=== PATIENT | female | born 1940 | race Caucasian/White ===

== ENCOUNTER 2017-01-07 23:50 | Emergency (ER) | payer MEDICARE ==
--- NOTE | 2017-01-08 00:56 | ED ---
Hemant Mckeon Michael, scribed for Burak Richter MD on 01/08/17 at 0047 . Hypertension - HPI Summary HPI Summary: 76 y/o female comes to the ED presenting with HTN that started today at 1700. The pt reports that she took her blood pressure at home, but she did not report what it was. Currently at the ED, her blood pressure is 216/83. Nothing aggravated or alleviated her blood pressure. The pt denies all other symptoms. She take bp medication and her last visit to her PCP was one month ago. The PMHx is significant for HTN. - History of Current Complaint Chief Complaint: EDHypertension Stated Complaint: HIGH BLOOD PRESSURE Time Seen by Provider: 01/08/17 00:25 Hx Obtained From: Patient, Medical Records Onset/Duration: Started Hours Ago, Still Present Timing: Constant Aggravating Factor(s): Nothing Alleviating Factor(s): Nothing Associated Signs & Symptoms: Other: - HTN. - Allergies/Home Medications Allergies/Adverse Reactions: Allergies Allergy/AdvReac Type Severity Reaction Status Date / Time Pseudoephedrine Allergy Hives Ver[facility] 01/08/17 00:09 [facility] peanut Allergy Abdominal Uncoded 01/08/17 00:10 Pain PMH/Surg Hx/FS Hx/Imm Hx Cardiovascular History: Reports: Hx Hypertension Infectious Disease History: No Infectious Disease History: Denies: Traveled Outside the [place] in Last 30 Days - Family History Known Family History: Negative: Blood Disorder - Social History Occupation: Unemployed Lives: With Family Review of Systems Negative: Fever Positive: Other - HTN All Other Systems Reviewed And Are Negative: Yes Physical Exam Triage Information Reviewed: Yes Vital Signs On Initial Exam: Initial Vitals Temp Pulse Resp BP Pulse Ox 98.1 F 77 18 216/83 100 01/08/17 00:06 01/08/17 00:06 01/08/17 00:06 01/08/17 00:06 01/08/17 00:06 Vital Signs Reviewed: Yes Appearance: Positive: No Pain Distress, Thin Skin: Positive: Warm Head/Face: Positive: Normal Head/Face Inspection Eyes: Positive: JOSE ANTONIO ENT: Positive: Hearing grossly normal Neck: Positive: Supple Respiratory/Lung Sounds: Positive: Clear to Auscultation, Breath Sounds Present Cardiovascular: Positive: RRR Abdomen Description: Positive: Nontender, Soft Bowel Sounds: Positive: Present Musculoskeletal: Positive: Strength/ROM Intact Neurological: Positive: Alert, Oriented to Person Place, Time Psychiatric: Positive: Affect/Mood Appropriate Diagnostics - Vital Signs Vital Signs Temp Pulse Resp BP Pulse Ox 01/08/17 00:06 98.1 F 77 18 216/83 100 - Laboratory Result Diagrams: 01/08/17 01:00 01/08/17 01:00 Lab Statement: Any lab studies that have been ordered have been reviewed, and results considered in the medical decision making process. Re-Evaluation - Re-Evaluation First Eval Change: Improved Hypertension Course/Dx - Diagnoses Provider Diagnoses: Hypertension Discharge - Discharge Plan Condition: Stable Disposition: HOME Patient Education Materials: Hypertension (ED) Referrals: Non Staff,Doctor [Primary Care Provider] - Additional Instructions: You should follow up with your Primary Care Physician within the next 2-3 days. Please return to the ED if your symptoms worsen. The documentation as recorded by the Hemant weldon Michael accurately reflects the service I personally performed and the decisions made by me, Burak Richter MD.
[2017-01-08 01:25] LABS: Hematocrit 41 % (35-47); Hemoglobin 13.6 g/dl (12.0-16.0); Mean Corpuscular HGB Conc 33 g/dl (31-36); Mean Corpuscular Hemoglobin 30 pg (27-31); Mean Corpuscular Volume 92 fL (80-97); Mean Platelet Volume 9 um3 (7.4-10.4); Red Blood Count 4.47 10^6/ul (4.0-5.4); Red Cell Distribution Width 13 % (10.5-15); White Blood Count 4.6 10^3/ul (3.5-10.8)
[2017-01-08 01:36] LABS: BUN/Creatinine Ratio 14.3 (8-20); Calcium 9.7 mg/dL (8.6-10.3); EGFR African American 85.2 (>60); EGFR Non-African American 66.3 (>60); Potassium 3.7 mmol/L (3.5-5.0)
[2017-01-08 04:01] VITALS: BP 171/54
== END 2017-01-08 01:55 | disposition home or self-care (01) ==
LOC: ED 23:50
DX: I10 Essential (primary) hypertension (principal)
CPT/HCPCS: 36415; 80048; 85025; 99282

== ENCOUNTER 2019-06-05 08:41 | Emergency (ER) | payer MEDICARE ==
[2019-06-05] MEDS ORDERED: Dexamethasone TAB* 4 MG PO ONE (09:11)
[2019-06-05] MEDS ORDERED: Famotidine TAB* 20 MG PO ONE (09:11)
[2019-06-05] MEDS ORDERED: diPHENhydraMINE PO* 25 MG PO ONE (09:11)
[2019-06-05 10:04] LABS: ABS Eosinophils 0.1 10^3/ul (0-0.6); ABS Monocytes 0.3 10^3/ul (0-0.8); ABS Neutrophils 1.7 10^3/ul (1.5-7.7); Eosinophil % 4.5 %; Hematocrit 41 % (35-47); Hemoglobin 13.4 g/dL (12.0-16.0); Lymphocyte % 32.1 %; Mean Corpuscular HGB Conc 33 g/dL (31-36); Mean Corpuscular Hemoglobin 30 pg (27-31); Mean Corpuscular Volume 91 fL (80-97); Mean Platelet Volume 8.4 fL (7.4-10.4); Nucleated Red Blood Cells % 0.1; Platelet Count 179 10^3/uL (150-450); Red Blood Count 4.47 10^6 /uL (3.70-4.87); Red Cell Distribution Width 13 % (10-15); White Blood Count 3.2 10^3/uL (3.5-10.8)
[2019-06-05 10:10] LABS: Albumin 4.1 g/dL (3.2-5.2); Albumin/Globulin Ratio 1.4 (1-3); BUN/Creatinine Ratio 14.6 (8-20); Calcium 9.9 mg/dL (8.6-10.3); EGFR African American 74.6 (>60); EGFR Non-African American 61.7 (>60); Globulin 2.9 g/dL (2-4); Potassium 4.1 mmol/L (3.5-5.0); Total Bilirubin 0.6 mg/dL (0.2-1.0)
--- NOTE | 2019-06-05 10:17 | ED ---
Allergic Reaction/Systemic - HPI Summary HPI Summary: Pt. is a 78 y.o female who presents to the ER for upper and lower lip swelling and lower face swelling since this am. Pt. states she noticed the swelling when she woke up and it seems to be increasing. Pt. denies tongue swelling, difficulty swallowing, cp, sob, rash, itching. Pt. notes she has a allergy to peanuts and states she was eating nuts yesterday but is sure there were no peanuts. She also notes she was in the garden yesterday but does not recall any insect stings/bites. Past hx of HTN and hypothyroid. Pt. takes Lisinopril. - History of Current Complaint Chief Complaint: EDAllergicReaction Time Seen by Provider: 06/05/19 08:56 Hx Obtained From: Patient Pain Intensity: 0 - Allergies/Home Medications Allergies/Adverse Reactions: Allergies Allergy/AdvReac Type Severity Reaction Status Date / Time peanut Allergy Abdominal Verified 06/05/19 08:43 Pain pseudoephedrine Allergy Hives Verified 06/05/19 08:43 Home Medications: Home Medications Levothyroxine Sodium [Synthroid] 1 tab PO QAM 06/05/19 [History Confirmed ] Lisinopril 20 mg PO DAILY 06/05/19 [History Confirmed 06/05/19] Pilocarpine HCl 1 drop LEFT EYE BID 06/05/19 [History Confirmed 06/05/19] PMH/Surg Hx/FS Hx/Imm Hx Previously Healthy: Yes Cardiovascular History: Reports: Hx Hypertension Infectious Disease History: No Infectious Disease History: Denies: Traveled Outside the [place] in Last 30 Days - Family History Known Family History: Positive: Non-Contributory Negative: Blood Disorder - Social History Occupation: Retired Lives: With Family Alcohol Use: None Substance Use Type: Reports: None Smoking Status (MU): Never Smoked Tobacco Review of Systems Positive: Other - lip and lower facial swelling Cardiovascular: Negative Respiratory: Negative Negative: Shortness Of Breath Gastrointestinal: Negative Genitourinary: Negative Musculoskeletal: Negative Skin: Negative Negative: Rash Neurological: Negative All Other Systems Reviewed And Are Negative: Yes Physical Exam Triage Information Reviewed: Yes Vital Signs On Initial Exam: Initial Vitals Temp Pulse Resp BP Pulse Ox 98.7 F 62 16 231/104 99 06/05/19 08:43 06/05/19 08:43 06/05/19 08:43 08/18/19 08:43 06/05/19 08:43 Vital Signs Reviewed: Yes Appearance: Positive: Well-Appearing - Pt. sitting on bed in NAD. Very talkative. Skin: Positive: Warm, Dry Head/Face: Positive: Other - Moderate edema to top and bottom lips and mildly to lower cheeks bilaterally. No erythema. Eyes: Positive: Normal, EOMI ENT: Positive: Other - Oral pharynx is patent. No edema to uvula. No swelling to tongue. No muffled voice. Neck: Positive: Supple Respiratory/Lung Sounds: Positive: Clear to Auscultation, Breath Sounds Present. Negative: Wheezes Cardiovascular: Positive: Normal, RRR Musculoskeletal: Positive: Normal, Strength/ROM Intact Neurological: Positive: Normal, CN Intact II-III Psychiatric: Positive: Affect/Mood Appropriate Diagnostics - Vital Signs Vital Signs Temp Pulse Resp BP Pulse Ox 06/05/19 08:43 98.7 F 62 16 231/104 99 - Laboratory Lab Results: Lab Results 06/05/19 06/05/19 Range/Units 09:24 09:24 WBC 3.2 L (3.5-10.8) 10^3/uL RBC 4.47 (3.70-4.87) 10^6 /uL Hgb 13.4 (12.0-16.0) g/dL Hct 41 (35-47) % MCV 91 (80-97) fL MCH 30 (27-31) pg MCHC 33 (31-36) g/dL RDW 13 (10-15) % Plt Count 179 (150-450) 10^3/uL MPV 8.4 (7.4-10.4) fL Neut % (Auto) 52.0 % Lymph % (Auto) 32.1 % [place] % (Auto) 10.6 % Eos % (Auto) 4.5 % Baso % (Auto) 0.8 % Absolute Neuts (auto) 1.7 (1.5-7.7) 10^3/ul Absolute Lymphs (auto) 1.0 (1.0-4.8) 10^3/ul Absolute Monos (auto) 0.3 (0-0.8) 10^3/ul Absolute Eos (auto) 0.1 (0-0.6) 10^3/ul Absolute Basos (auto) 0.0 (0-0.2) 10^3/ul Absolute Nucleated RBC 0.0 10^3/ul Nucleated RBC % 0.1 Sodium 125 L (135-145) mmol/L Potassium 4.1 (3.5-5.0) mmol/L Chloride 92 L (101-111) mmol/L Carbon Dioxide 27 (22-32) mmol/L Anion Gap 6 (2-11) mmol/L BUN 13 (6-24) mg/dL Creatinine 0.89 (0.51-0.95) mg/dL Est GFR ( Amer) 74.6 (>60) Est GFR (Non-Af Amer) 61.7 (>60) BUN/Creatinine Ratio 14.6 (8-20) Glucose 108 H (70-100) mg/dL Calcium 9.9 (8.6-10.3) mg/dL Total Bilirubin 0.60 (0.2-1.0) mg/dL AST 31 (13-39) U/L ALT 17 (7-52) U/L Alkaline Phosphatase 63 (34-104) U/L C-Reactive Protein 1.00 (<8.01) mg/L Total Protein 7.0 (6.4-8.9) g/dL Albumin 4.1 (3.2-5.2) g/dL Globulin 2.9 (2-4) g/dL Albumin/Globulin Ratio 1.4 (1-3) Result Diagrams: 06/05/19 09:24 06/05/19 09:24 Lab Statement: Any lab studies that have been ordered have been reviewed, and results considered in the medical decision making process. Allergic Reaction Course/Dx - Course Course Of Treatment: Pt. presenting with lip and lower facial swelling. Afebrile and well appearing. No evidence of anaphylaxis on exam. No signs of infection. Pt. notes that she was eating nuts last night and was in the garden so potential for allergic rxn. Although suspect angioedema is secondary to lisinopril since pt. has no other signs of allergic rxn. Pt. given trail of benadryl, pepcid and decadron. Labs ordered. CBC unremarkable. CMP shows hyponatrium of 125. Pt. given a liter of NSS. Discussed low na with pt. and she has had no sxs. BP has been elevated in the ED and pt. states she did not taker her BP med this am. Pt. is asymptomatic. Will dc lisinopril. Discussed with Dr. Sargent who recommends switching to Cozaar. Pt. given dose in ED and BP improved. Will dc home to f.u with PCP in 2-3 days. To return to ER If sxs change or worsen. Pt. understands and agrees with plan. - Diagnoses Differential Diagnosis/HQI/PQRI: Positive: Airway Obstruction, Anaphylaxis, Local Allergic Reaction Provider Diagnoses: Hyponatremia, Angioedema Discharge - Sign-Out/Discharge Documenting (check all that apply): Patient Departure Patient Received Moderate/Deep Sedation with Procedure: No - Discharge Plan Condition: Good Disposition: HOME Prescriptions: Losartan Potassium [Cozaar] 50 mg PO DAILY #14 tablet Patient Education Materials: Hyponatremia (ED), Angioedema (ED) Referrals: Pat Langley MD [Primary Care Provider] - Additional Instructions: Call your PCP tomorrow for follow up appointment within one week Stop Lisinopril immediately Start new blood pressure medication today as directed Return to ER if symptoms change or worsen - Billing Disposition and Condition Condition: GOOD Disposition: Home
[2019-06-05] MEDS ORDERED: NS 0.9% 1000 ML** 1,000 ML IV ONE (10:31)
[2019-06-05] MEDS ORDERED: Losartan TAB* 25 MG PO ONE (12:05)
[2019-06-05 13:08] VITALS: BP 171/64
== END 2019-06-05 13:07 | disposition home or self-care (01) ==
LOC: ED 08:41
DX: E87.1 Hypo-osmolality and hyponatremia (principal); T78.3XXA Angioneurotic edema, initial encounter; E03.9 Hypothyroidism, unspecified; I10 Essential (primary) hypertension; Z88.8 Allergy status to other drugs, medicaments and biological substances; Z91.010 Allergy to peanuts
CPT/HCPCS: 36415; 80053; 85025; 86140; 96360; 99283; A9270-GY; J8540

== ENCOUNTER 2019-07-02 08:17 | Emergency (ER) | payer MEDICARE ==
[2019-07-02] MEDS ORDERED: Lidocaine 2% JELLY* 10 ML JELLY TOPICAL ONE (08:57)
--- NOTE | 2019-07-02 08:59 | ED ---
GI/ HPI - HPI Summary HPI Summary: This patient is a 78 year old F presenting to [facility] with a chief complaint of self diagnosed post-menopausal vaginal atrophy worsening since 1 week ago. Symptoms aggravated at night when she lays down, also reports she has gas pain( takes GasX). Symptoms alleviated by lidocaine creams and lubricants. Patent reports she is trying to use medications that include Estradiol and a personal lubricant along with moisturizer to keep her genital area moist. Patient denies bleeding, vaginal discharge or issues with urinating. Of note also reports chronic foot pain. Patient describes pain in her left pinky toe and left 2nd toe since an operation on her 2nd toe that hurts when walking. Patient prefers a [place] orthopedist. Hx hypertension. Fhx diabetes, PNA. - History of Current Complaint Chief Complaint: EDUrogenitalProblems Time Seen by Provider: 07/02/19 08:37 Stated Complaint: GROIN PAIN / LT FOOT PAIN PER PT Hx Obtained From: Patient Onset/Duration: Started Weeks Ago - 1, Still Present Timing: Constant Pain Intensity: 7 Associated Signs and Symptoms: Positive: Other: - denies issues with urinating Additional Signs & Symptoms: Negative: Vaginal Bleeding Aggravating Factor(s): Movement - laying down Alleviating Factor(s): Nothing - Allergy/Home Medications Allergies/Adverse Reactions: Allergies Allergy/AdvReac Type Severity Reaction Status Date / Time peanut Allergy Abdominal Verified 07/02/19 08:25 Pain pseudoephedrine Allergy Hives Verified 07/02/19 08:25 PMH/Surg Hx/FS Hx/Imm Hx Endocrine/Hematology History: Denies: Hx Diabetes Cardiovascular History: Reports: Hx Hypertension Sensory History: Reports: Hx Contacts or Glasses Opthamlomology History: Reports: Hx Contacts or Glasses - Surgical History Surgery Procedure, Year, and Place: gallbladder removal Infectious Disease History: No Infectious Disease History: Denies: Traveled Outside the [place] in Last 30 Days - Family History Known Family History: Positive: Non-Contributory Negative: Blood Disorder - Social History Alcohol Use: None Hx Substance Use: No Substance Use Type: Reports: None Hx Tobacco Use: No Smoking Status (MU): Never Smoked Tobacco Review of Systems Genitourinary: Other - denies vaginal bleeding, issues urinating Positive: other - post-menopausal vaginal atrophy Positive: Other - pain in her left pinky toe and left 2nd toe All Other Systems Reviewed And Are Negative: Yes Physical Exam - Summary Physical Exam Summary: Constitutional: Well-developed, Well-nourished, Alert. (-) Distressed Skin: Warm, Dry HENT: Normocephalic; Atraumatic Eyes: Conjunctiva normal Neck: Musculoskeletal ROM normal neck. (-) JVD, (-) Stridor, (-) Nuchal rigidity Cardio: Rhythm regular, rate normal, Heart sounds normal; Intact distal pulses; Radial pulses are 2+ and symmetric. (-) Murmur Pulmonary/Chest wall: Effort normal. (-) Respiratory distress, (-) Wheezes, (-) Rales Abd: Soft, (-) tenderness, (-) Distension, (-) Guarding, (-) Rebound : External Exam: normal labia, no masses, lacerations or abnormal lesions visualized. No discharge Musculoskeletal: (-) Edema. no deformity or tenderness of L foot/toes, 2+ DP pulse Neuro: Alert, Oriented x3 Psych: Mood and affect Normal nurse Mauricio, was in the room for the exam. Triage Information Reviewed: Yes Vital Signs On Initial Exam: Initial Vitals Temp Pulse Resp BP Pulse Ox 98.7 F 75 16 219/95 99 07/02/19 08:22 07/02/19 08:22 07/02/19 08:22 07/02/19 08:22 07/02/19 08:22 Vital Signs Reviewed: Yes Diagnostics - Vital Signs Vital Signs Temp Pulse Resp BP Pulse Ox 07/02/19 08:22 98.7 F 75 16 219/95 99 - Laboratory Lab Statement: Any lab studies that have been ordered have been reviewed, and results considered in the medical decision making process. Re-Evaluation - Re-Evaluation First Eval Re-Evaluation Time: 10:12 Comment: Patient requesting antibiotics. Discussed with patient that because she has no obvious infectious symptoms, discharge and no source for infection, she does not need antibiotics. Patient in agreement. GIGU Course/Dx - Course Course Of Treatment: 78-year-old female with a history of atrophic vaginitis presents with vaginal dryness and pain. - Physical exam with no obvious lesions , or vaginal discharge. No infectious symptoms. Patient likely has pain from chronic atrophic vaginitis, we'll give lidocaine Urojet here and can follow up with primary care doctor. Patient already on estrogen vaginal cream and lubricants. - Diagnoses Provider Diagnoses: Vaginal atrophy, Foot pain, left Discharge ED - Sign-Out/Discharge Documenting (check all that apply): Patient Departure - discharge Patient Received Moderate/Deep Sedation with Procedure: No - Discharge Plan Condition: Stable Disposition: HOME Referrals: Pat Langley MD [Primary Care Provider] - 2 Days Additional Instructions: You were seen in the emergency department for vaginal pain secondary to atrophy. This is a normal process of aging. Please continue taking her medications as prescribed. Please follow-up with gynecology. Please return for worsening symptoms - Billing Disposition and Condition Condition: STABLE Disposition: Home - Attestation Statements Document Initiated by Darrellibe: Yes Documenting Scribe: Rosanna Hernandez Provider For Whom Paul is Documenting (Include Credential): Dr. Beatriz Bucio MD Scribe Attestation: Rosanna Mckeon, scribed for Dr. Beatriz Bucio MD on 07/02/19 at 1030. Scribe Documentation Reviewed: Yes Provider Attestation: The documentation as recorded by the Rosanna weldon accurately reflects the service I personally performed and the decisions made by me, Dr. Beatriz Bucio MD Status of Scribe Document: Viewed
[2019-07-02] MEDS ORDERED: Lidocaine 2% JELLY* 6 ML JELLY TOPICAL ONE (10:00)
[2019-07-02 10:22] VITALS: BP 167/89
== END 2019-07-02 10:10 | disposition home or self-care (01) ==
LOC: ED 08:17
DX: N95.2 Postmenopausal atrophic vaginitis (principal); I10 Essential (primary) hypertension; M79.672 Pain in left foot
CPT/HCPCS: 99282; A9270-GY

== ENCOUNTER 2019-10-31 03:12 | Emergency (ER) | payer MEDICARE ==
[2019-10-31] MEDS ORDERED: Lidocaine 4% GEL* 10 GM TUBE TOPICAL ONE (03:24)
--- NOTE | 2019-10-31 03:27 | ED ---
GI/ HPI - HPI Summary HPI Summary: The patient is a 79 y/o female arriving by ambulance to [facility] with a chief complaint of vaginal pain onset last night. 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 Since last night , the sharp pain has been worse than usual, rated 10/10 in severity now. The pain is aggravated with lying down. She denies any other symptoms including any abdominal pain or fevers. She states that she has been given a Lidocaine gel before which has helped with the pain. PMHx: HTN, atrophic vaginitis. Nonsmoker , no EtOH, no substance use. Medications reviewed. Allergies noted. - History of Current Complaint Stated Complaint: GENERAL ILLNESS PER EMS Hx Obtained From: Patient Onset/Duration: Started Hours Ago, Still Present Timing: Constant Severity: Moderate Current Severity: Severe Pain Intensity: 10 Additional Location for Females: Vulva Pain Characteristics: Sharp Associated Signs and Symptoms: Negative: Fever, Abdominal Pain Aggravating Factor(s): Sitting - lying down Alleviating Factor(s): Nothing - Allergy/Home Medications Allergies/Adverse Reactions: Allergies Allergy/AdvReac Type Severity Reaction Status Date / Time peanut Allergy Abdominal Verified 10/31/19 03:19 Pain pseudoephedrine Allergy Hives Verified 10/31/19 03:19 PMH/Surg Hx/FS Hx/Imm Hx Endocrine/Hematology History: Denies: Hx Diabetes Cardiovascular History: Reports: Hx Hypertension History: Reports: Other Problems/Disorders - atrophic vaginitis, vulvodynia Sensory History: Reports: Hx Contacts or Glasses Opthamlomology History: Reports: Hx Contacts or Glasses - Surgical History Surgical History: Yes Surgery Procedure, Year, and Place: gallbladder removal Infectious Disease History: No Infectious Disease History: Denies: Traveled Outside the [place] in Last 30 Days - Family History Known Family History: Negative: Renal Disease, Blood Disorder - Social History Alcohol Use: None Hx Substance Use: No Substance Use Type: Reports: None Hx Tobacco Use: No Smoking Status (MU): Never Smoked Tobacco Review of Systems Negative: Fever Negative: Abdominal Pain Positive: other - vaginal pain All Other Systems Reviewed And Are Negative: Yes Physical Exam - Summary Physical Exam Summary: Appearance: Well-appearing, Well-nourished, lying in bed comfortably Skin: Warm, dry, no obvious rash Eyes: sclera anicteric, no conjunctival pallor ENT: mucous membranes moist, pharynx appears normal Neck: Supple, nontender Respiratory: Clear to auscultation, no signs of respiratory distress Cardiovascular: Normal S1, S2. No murmurs. Normal distal pulses in tibial and radial bilaterally. Abdomen: Soft, nontender, normal active bowel sounds present Musculoskeletal: Normal, Strength/ROM Intact Neurological: A&Ox3, awake and alert, mentation is normal, speech is fluent and appropriate Psychiatric: affect is normal, does not appear anxious or depressed : Vaginal mucosa appears normal, No inflammation or lesions noted Triage Information Reviewed: Yes Vital Signs On Initial Exam: Initial Vitals Temp Pulse Resp BP Pulse Ox 98.3 F 83 16 216/101 97 10/31/19 03:17 10/31/19 03:17 10/31/19 03:17 10/31/19 03:17 10/31/19 03:17 Vital Signs Reviewed: Yes Procedures - Sedation Patient Received Moderate/Deep Sedation with Procedure: No Diagnostics - Vital Signs Vital Signs Temp Pulse Resp BP Pulse Ox 10/31/19 03:17 98.3 F 83 16 216/101 97 - Laboratory Lab Statement: Any lab studies that have been ordered have been reviewed, and results considered in the medical decision making process. Re-Evaluation - Re-Evaluation First Eval Re-Evaluation Time: 03:40 Comment: We discussed plan for discharge. GIGU Course/Dx - Course Course Of Treatment: 79 y/o female who has history of vulvodynia and atrophic vaginitis presenting by ambulance with sharp vaginal pain onset last night without any other symptoms. Physical exam is negative for abnormal findings with normal vaginal mucosa and no inflammation or lesions noted. Patient given topical Lidocaine gel for vaginal pain as she has noted this has helped in the past. Patient is safe for discharge with rx for Estradiol and Lidocaine. Patient understands and agrees with plan. - Diagnoses Provider Diagnoses: Vulvodynia Discharge ED - Sign-Out/Discharge Documenting (check all that apply): Patient Departure - Patient will be discharged home. - Discharge Plan Condition: Good Disposition: HOME Prescriptions: Estradiol [Estrace] 1 applic VG BEDTIME #42.5 g Lidocaine 5% OINT* TUBE [Xylocaine 5% Oint*] 1 applic TOPICAL SEE INSTRUCTIONS # 1 tube Patient Education Materials: Estradiol (Into the vagina) Referrals: Pat Langley MD [Primary Care Provider] - - Attestation Statements Document Initiated by Scribe: Yes Documenting Scribe: Tisha Quiroga Provider For Whom Darrellibchilo is Documenting (Include Credential): Dr. Moises Mehta MD Scribe Attestation: ITisha scribed for Dr. Moises Mehta MD on 10/31/19 at 0337. Status of Scribe Document: Ready
[2019-10-31 04:00] VITALS: BP 200/89
== END 2019-10-31 03:55 | disposition home or self-care (01) ==
LOC: ED 03:12
DX: N94.819 Vulvodynia, unspecified (principal); I10 Essential (primary) hypertension; Z91.010 Allergy to peanuts; Z91.09 Other allergy status, other than to drugs and biological substances
CPT/HCPCS: 99282